=== PATIENT | female | born 1955 | race Caucasian/White ===

== ENCOUNTER 2022-03-19 09:55 | Day surgery (SDC) | payer BC ==
[2022-03-15 10:30] LABS: Absolute Lymphocytes (CBC) 1.5 K/uL (0.7-4.9); Hematocrit 33.2 % (36.0-45.0); Lymphocytes % 20.2 % (15.3-44.8); MCV 79.9 fL (80-100); MPV 6.6 fL (7.6-11.3); RBC Red Blood Cell Count 4.16 M/uL (3.86-4.86)
[2022-03-15 10:45] LABS: Potassium 3.8 mmol/L (3.5-5.1)
[2022-03-15 10:52] LABS: SARS-CoV-2 Antigen Rapid Res Negative (Negative)
--- NOTE | 2022-03-15 12:19 | EKG ---
Test Date: 2022-03-15 Test Time: 10:01:03 Vice President & General Manager [employer]: HUY MEASUREMENT RESULTS: Intervals: Rate: 68 MI: QRSD: 94 QT: 398 QTc: 423 [place]: P: MI: QRS: -34 T: 44 INTERPRETIVE STATEMENTS: Accelerated Junctional rhythm Left axis deviation Cannot rule out Anterior infarct, age undetermined Abnormal ECG No previous ECG available for comparison Electronically Signed On 03-15-22 12:19:06 CDT by Hugo Elena
[2022-03-19] MEDS ORDERED: CEFAZOLIN 2 GM IN 0.9% NACL 2 GM/100 ML BAG ONE (10:30)
[2022-03-19] MEDS: NA CHLORIDE 0.9% 1,000 ML ONE ×2 (10:40→11:18)
[2022-03-19] MEDS ORDERED: FENTANYL CITR 100 MCG/2 ML ONE (11:07)
[2022-03-19] MEDS ORDERED: propofoL 200 MG/20 ML VIAL IV ONE (11:07)
[2022-03-19] MEDS ORDERED: MIDAZOLAM HCL 2 MG/2 ML INJ ONE (11:07)
[2022-03-19] MEDS ORDERED: LIDOCAINE 2% MPF 5 ML VIAL ONE (11:11)
[2022-03-19] MEDS ORDERED: ONDANSETRON 4 MG/2 ML VIAL ONE (11:11)
[2022-03-19] MEDS ORDERED: BUPIVACAINE 0.25% PF 10 ML VIAL ONE (11:17)
[2022-03-19] MEDS ORDERED: METHYLENE BLUE 0.5% 10 ML AMP ONE (11:55)
[2022-03-19] MEDS ORDERED: SODIUM HYPOCHLORITE 0.25% 473 ML ONE (12:21)
[2022-03-19] MEDS ORDERED: NA CHLORIDE 0.9% 1,000 ML ONE (12:50)
--- NOTE | 2022-03-19 12:55 | P.OP ---
Preoperative diagnosis: Bilateral Buttock / Perianal Hidradenitis Postoperative diagnosis: Bilateral Buttock / Perianal Hidradenitis Primary procedure: Wide local excision of Bilateral Buttock / Perianal Hidradenitis Anesthesia: GETA + Local Estimated blood loss: <20cc Specimen: debridement tissue Findings: 5cm RIGHT buttock wound, 3cm x 2 cm buttock wound Complications: None Transferred to: Recovery Room Condition: Good
[2022-03-19] MEDS ORDERED: HYDROMORPHONE HCL 1 MG/ML INJ ONE (13:04)
[2022-03-19 15:22] VITALS: BP 133/85; TEMP 96.6; O2SAT 95
--- NOTE | 2022-03-20 01:46 | OP ---
Date of Procedure: 03/19/2022 Surgeon: Moncho Koch MD, Preoperative Diagnosis: Bilateral buttock/perianal hidradenitis. Postoperative Diagnosis: Bilateral buttock/perianal hidradenitis. Procedure Performed: Wide local excision of bilateral buttock/perianal hidradenitis. Anesthesia: General endotracheal plus local with 0.5% Marcaine with epinephrine as above. Estimated Blood Loss: 5 cc. Specimen: Debridement tissue. Findings: 5 cm right buttock wound and a 3 cm buttock wound, both areas were affected hidradenitis w ith sinus tracts. Complications: None. The patient was transferred recovery room in good condition. Procedure In Detail: After informed was obtained, the patient was brought to the operating room, pre pped and draped in the usual sterile fashion. After adequate anesthesia was achieved, the patient wa s placed in lithotomy position. I then inspected the area of hidradenitis in the bilateral buttock a reas. These had some draining clear fluid at this point. I then injected methylene blue into all af fected areas and noted tract in a radial type pattern from the perianal area on the right buttock mony roximately 3 cm from the perianal verge, I noted a sinus tract of hidradenitis skin. This was taken down using sharp dissection with a 15 blade down to subcutaneous tissue. Electrocautery was used to dissect all affected tissues and sent off for pathologic examination. The area was curetted. Hemost asis was achieved with electrocautery. The wound was then copiously irrigated and packed with steril e gauze soaked in Dakin solution and a sterile dressing placed over top. I then turned my attention to the left buttock area. Similarly, this area was injected with methylene blue and the sinus tract was inspected at this point. At this point, I performed a perianal exam putting an anoscope in the a nal vault and inspected. No obvious fistulous tracts were appreciated. No methylene blue was apprec iated in the anal vault and as such, no obvious fistulous tracts were appreciated. At this point, I then used a 15 blade down through subcutaneous tissues and dissected circumferentially around approxi mately 3 cm area of hidradenitis on the left buttock area with a 15 blade down through subcutaneous t issues, I then used electrocautery to remove all the infected blue tissues, sent this off for patholo gic examination as debridement tissue consistent with hidradenitis. The area was copiously irrigated . Hemostasis was achieved with electrocautery. The area was copiously irrigated one last time, suct ioned out, then completely dry. The area was then packed with 0.25% Dakin solution and a sterile manjit ssing was placed over top. The patient tolerated the procedure without evidence of complication, tra nsferred to the PACU in good condition. All counts were correct at the end of the case. KULWANT/BISI Voice ID: [id number] Report ID: [id number]
== END 2022-03-19 15:10 | disposition home or self-care (01) ==
LOC: OR 09:55
PROVIDERS: ATTEND Surgery
PROC: 0JB90ZZ Excision of Buttock Subcutaneous Tissue and Fascia, Open Approach (ICD-10-PCS; principal; 2022-03-19 11:15)
DX: L73.2 Hidradenitis suppurativa (principal); Z20.822 Contact with and (suspected) exposure to COVID-19
CPT/HCPCS: 11470; 93005; 85025; 80048; 36415; 82947 ×2; 88304; 87811; J2704; J2250; J3010; J1170; J0690; Q9968; J7030 ×2; J2405

== ENCOUNTER 2022-06-11 11:29 | Day surgery (SDC) | payer BC ==
[2022-06-10 13:26] LABS: Potassium 3.9 mmol/L (3.5-5.1)
[2022-06-11] MEDS ORDERED: NA CHLORIDE 0.9% 1,000 ML ONE (11:48)
[2022-06-11] MEDS ORDERED: CEFAZOLIN SODIUM 1 GM/VIAL ONE (11:48)
[2022-06-11] MEDS ORDERED: propofoL 200 MG/20 ML VIAL IV ONE (14:22)
[2022-06-11] MEDS ORDERED: MIDAZOLAM HCL 2 MG/2 ML INJ ONE (14:22)
[2022-06-11] MEDS ORDERED: ROCURONIUM 50 MG/5 ML VIAL IV ONE (14:22)
[2022-06-11] MEDS ORDERED: FENTANYL CITR 100 MCG/2 ML ONE ×2 (14:22→15:38)
[2022-06-11] MEDS ORDERED: LIDOCAINE 2% MPF 5 ML VIAL ONE (14:24)
[2022-06-11] MEDS ORDERED: SODIUM HYPOCHLORITE 0.25% 473 ML ONE (14:25)
[2022-06-11] MEDS ORDERED: EPHEDRINE SULF 50 MG/ML VIAL ONE (15:01)
[2022-06-11] MEDS ORDERED: METHYLENE BLUE 0.5% 10 ML AMP ONE (15:10)
[2022-06-11] MEDS ORDERED: SUCCINYLCHOLINE 20 MG/ML (10 ML) IV ONE (15:13)
--- NOTE | 2022-06-11 16:25 | P.OP ---
Preoperative diagnosis: LEFT Axillary and LEFT inframmary, RIGHT Buttock Hidradenitis Postoperative diagnosis: LEFT Axillary and LEFT inframmary, RIGHT Buttock Hidradenitis Primary procedure: Wide excision of LEFT Axillary and LEFT inframmary, Hidradenitis Secondary procedure: RIGHT Buttock Hidradenitis Anesthesia: GETA + Local Estimated blood loss: <75cc Specimen: Skin and Subcutaneous tissue - left axillay, left chest, right buttock Findings: Hidradenitis suppuritiva of LEFT axilly, LEFT chest wall, RIGHT buttock Complications: None Transferred to: Recovery Room Condition: Good
[2022-06-11] MEDS: HYDROMORPHONE HCL 1 MG/ML INJ ONE ×4 (16:50→17:14)
[2022-06-11 17:50] VITALS: TEMP 96.6; O2SAT 96
[2022-06-11] MEDS ORDERED: ONDANSETRON 4 MG/2 ML VIAL ONE (18:27)
[2022-06-11 19:18] VITALS: BP 154/72
--- NOTE | 2022-06-12 05:35 | OP ---
Date of Procedure: 06/11/2022 Surgeon: Moncho Koch MD, Preoperative Diagnoses: Left axillary and left inframammary skin hidradenitis and right buttock hidr adenitis suppurativa. Postoperative Diagnoses: Left axillary and left inframammary skin hidradenitis and right buttock hid radenitis suppurativa. Procedures Performed: 1.Wide local excision of left axillary hidradenitis suppurativa. 2.Wide local excision of left inframammary hidradenitis suppurativa. 3.Wide local excision of right buttock hidradenitis suppurativa and tract. Anesthesia: General endotracheal plus local with 0.25% Marcaine without epinephrine. Estimated Blood Loss: 75 cc. Specimens: Skin and subcutaneous tissue from the left axilla, left chest wall at the inframammary cr ease and right buttock. Findings: Hidradenitis suppurativa of the left axilla with abscess. Left chest wall/inframammary hi dradenitis suppurativa with draining sinus and abscess. Right buttock hidradenitis suppurativa also with abscess. Complications: None. Disposition: The patient transferred to recovery room in good condition. Procedure In Detail: After informed consent was obtained, patient was brought to the operating room, prepped and draped in the usual sterile fashion. After adequate anesthesia was achieved, and the ar ea of right buttock was injected, where a sinus tract was draining with methylene blue. The blue dye was noted to be emanating through a particular tract, which was evident at the skin level. As such, an elliptical incision for approximately 5 cm down by 4 cm down to subcutaneous fat, approximately 2 cm from the perianal skin was incised on the right buttock. I then dissected circumferentially arou nd using electrocautery to remove all infected blue discolored tissues. Abscess was encountered. Th is was cultured with both aerobic and anaerobic speciation and sent off for pathologic examination wi th specimen. After the specimen was ligated, the area was copiously irrigated. Hemostasis was easil y achieved with electrocautery. No additional hemostatic maneuvers were required. The end of the wo und was then packed with Kerlix soaked in 0.25% Dakin solution and a dry dressing was applied over th e top. The patient was then prepped and draped in the usual sterile fashion for the left axillary/le ft inframammary incision and the procedure. After the appropriate anesthesia was maintained througho ut the procedure, I injected the area of the left inframammary crease through an area of draining sin us with abscess. A circumferential ellipse of skin for approximately 3.5 cm by 2 cm down of subcutan eous fat was removed using a 15 blade down circumferentially around electrocautery to allow for remov al. The entire specimen was sent off for pathologic examination. Hemostasis was then achieved with electrocautery. The wound was irrigated and closed with an interrupted 3-0 nylon suture and the ster ile dressing was placed over top. Attention was then turned to the left axilla over an area of appro ximately 15 cm x 8 cm elliptical area of severe hidradenitis suppurativa with draining abscess materi al was inspected. I made an elliptical incision around the above-described parameters down to the fletcher bcutaneous tissues using a 15 blade. Electrocautery was used to dissect down to the subcutaneous tis sues where an infected hidradenitis suppurativa tissue was encountered as well as multiple abscesses through this area, some of which communicated, some of which were independent, and multiple areas of this abnormal skin. All abscess cavities were removed, staying in the axillary space. After all the abnormal tissue was removed, it was sent off for pathologic examination. The area was copiously irr igated. Hemostasis was achieved with electrocautery. The skin could not be brought back together du e to a significant tissue loss in this area. As such, the sterile dressing was then soaked in 0.25% Dakin solution and packed into the axillary subcutaneous tissues and a sterile dressing placed over t op. The patient tolerated the procedure without evidence of any complication and transferred back in good condition. All counts were correct at the end of the case. KULWANT/BISI Voice ID: [id number] Report ID: [id number]
== END 2022-06-11 19:12 | disposition home or self-care (01) ==
LOC: OR 11:29
PROVIDERS: ATTEND Surgery
PROC: 0JB60ZZ Excision of Chest Subcutaneous Tissue and Fascia, Open Approach (ICD-10-PCS; 2022-06-11)
PROC: 0JBF0ZZ Excision of Left Upper Arm Subcutaneous Tissue and Fascia, Open Approach (ICD-10-PCS; principal; 2022-06-11 14:00)
PROC: 0JB90ZZ Excision of Buttock Subcutaneous Tissue and Fascia, Open Approach (ICD-10-PCS; 2022-06-11 14:00)
DX: L73.2 Hidradenitis suppurativa (principal); I10 Essential (primary) hypertension; E11.9 Type 2 diabetes mellitus without complications; I48.91 Unspecified atrial fibrillation
CPT/HCPCS: 87070; 80048; 36415; 87205; 82947 ×2; 88304; 87075; 87077 ×2; 87186 ×2; 11450; 11470; 11403; J2704; J0330; J2001; J3010 ×2; J1170 ×2; Q9968; J7030; J2405; J0690; 88305; J2250

== ENCOUNTER 2023-03-18 09:05 | Day surgery (SDC) | payer BC ==
[2023-03-18 10:09] LABS: Absolute Lymphocytes (CBC) 1.7 K/uL (0.7-4.9); Hematocrit 33.7 % (36.0-45.0); Lymphocytes % 27.2 % (15.3-44.8); MCV 83.6 fL (80-100); MPV 6.7 fL (7.6-11.3); Platelets 217 thou/uL (152-406); RBC Red Blood Cell Count 4.02 M/uL (3.86-4.86)
[2023-03-18] MEDS ORDERED: NA CHLORIDE 0.9% 1,000 ML ONE (10:10)
[2023-03-18 10:26] LABS: Potassium 3.5 mEq/L (3.5-5.1)
[2023-03-18] MEDS ORDERED: MIDAZOLAM HCL 2 MG/2 ML INJ ONE (13:13)
[2023-03-18] MEDS ORDERED: propofoL 200 MG/20 ML VIAL IV ONE ×3 (13:13→14:31)
[2023-03-18] MEDS ORDERED: KETAMINE HCL IN 0.9 % NACL 50 MG/5 ML SYRINGE IV ONE (13:15)
[2023-03-18] MEDS ORDERED: ACETAMINOPHEN 500 MG TAB ONE (15:03)
[2023-03-18 15:18] VITALS: TEMP 96.8
[2023-03-18 15:30] VITALS: BP 141/73; O2SAT 100
--- NOTE | 2023-03-21 13:12 | EKG ---
Test Date: 2023-03-18 Test Time: 10:26:22 Management Technician: MARGARITA MEASUREMENT RESULTS: Intervals: Rate: 62 AL: QRSD: 98 QT: 418 QTc: 424 [place]: P: AL: QRS: 15 T: 44 INTERPRETIVE STATEMENTS: Junctional rhythm Abnormal ECG Compared to ECG 03/18/2023 10:25:07 Fusion complex(es) no longer present Electronically Signed On 03-21-23 13:08:33 CDT by Hugo Elena
== END 2023-03-18 15:27 | disposition home or self-care (01) ==
LOC: OR 09:05
PROVIDERS: ATTEND Surgery
PROC: 0DB98ZX Excision of Duodenum, Via Natural or Artificial Opening Endoscopic, Diagnostic (ICD-10-PCS; 2023-03-18)
PROC: 0DB78ZX Excision of Stomach, Pylorus, Via Natural or Artificial Opening Endoscopic, Diagnostic (ICD-10-PCS; 2023-03-18)
PROC: 0DB68ZX Excision of Stomach, Via Natural or Artificial Opening Endoscopic, Diagnostic (ICD-10-PCS; 2023-03-18)
PROC: 0DB58ZX Excision of Esophagus, Via Natural or Artificial Opening Endoscopic, Diagnostic (ICD-10-PCS; 2023-03-18)
PROC: 0DBK8ZX Excision of Ascending Colon, Via Natural or Artificial Opening Endoscopic, Diagnostic (ICD-10-PCS; principal; 2023-03-18 11:15)
PROC: 0DBL8ZX Excision of Transverse Colon, Via Natural or Artificial Opening Endoscopic, Diagnostic (ICD-10-PCS; 2023-03-18 11:15)
DX: Z12.11 Encounter for screening for malignant neoplasm of colon (principal); K29.30 Chronic superficial gastritis without bleeding; K31.7 Polyp of stomach and duodenum; K29.80 Duodenitis without bleeding; K64.8 Other hemorrhoids; D12.2 Benign neoplasm of ascending colon; D12.3 Benign neoplasm of transverse colon; R13.10 Dysphagia, unspecified; K21.9 Gastro-esophageal reflux disease without esophagitis
CPT/HCPCS: 45385; 43239; 93005 ×2; 85025; 80048; 36415; 88312; 88305; J2704 ×3; J2250; J7030

== ENCOUNTER → 2023-11-18 | Day surgery (SDC) | payer BC ==
[~2023-11-18] MED LIST: LIDOCAINE 1% MPF 5 ML VIAL ONE; propofoL 200 MG/20 ML VIAL IV ONE
[2023-11-18] MEDS: NA CHLORIDE 0.9% 1,000 ML ONE (08:00)
[2023-11-18 11:11] VITALS: BP 138/57; TEMP 96.8; O2SAT 99
== END ==
LOC: OR 07:24
PROVIDERS: ATTEND Surgery
PROC: 0DB98ZX Excision of Duodenum, Via Natural or Artificial Opening Endoscopic, Diagnostic (ICD-10-PCS; 2023-11-18)
PROC: 0DB78ZX Excision of Stomach, Pylorus, Via Natural or Artificial Opening Endoscopic, Diagnostic (ICD-10-PCS; 2023-11-18)
PROC: 0DB18ZX Excision of Upper Esophagus, Via Natural or Artificial Opening Endoscopic, Diagnostic (ICD-10-PCS; 2023-11-18)
PROC: 0DB38ZX Excision of Lower Esophagus, Via Natural or Artificial Opening Endoscopic, Diagnostic (ICD-10-PCS; 2023-11-18)
PROC: 0DB48ZX Excision of Esophagogastric Junction, Via Natural or Artificial Opening Endoscopic, Diagnostic (ICD-10-PCS; 2023-11-18)
PROC: 0DBM8ZX Excision of Descending Colon, Via Natural or Artificial Opening Endoscopic, Diagnostic (ICD-10-PCS; principal; 2023-11-18 08:30)
PROC: 0DBN8ZX Excision of Sigmoid Colon, Via Natural or Artificial Opening Endoscopic, Diagnostic (ICD-10-PCS; 2023-11-18 08:30)
DX: Z12.11 Encounter for screening for malignant neoplasm of colon (principal); Z86.010 Personal history of colon polyps; R13.10 Dysphagia, unspecified; K64.8 Other hemorrhoids; K29.50 Unspecified chronic gastritis without bleeding; K31.7 Polyp of stomach and duodenum; K21.00 Gastro-esophageal reflux disease with esophagitis, without bleeding; D12.5 Benign neoplasm of sigmoid colon; K21.9 Gastro-esophageal reflux disease without esophagitis
CPT/HCPCS: 88312 ×2; 82947; 88305; 45380; 43239; J2704; J2001; J7030

== ENCOUNTER 2025-05-03 09:24 | Day surgery (SDC) | payer BC ==
[2025-05-01 15:10] LABS: Absolute Lymphocytes (CBC) 1.7 K/uL (0.7-4.9); Hematocrit 38.6 % (36.0-45.0); Hemoglobin 13.4 g/dL (12.0-15.0); MCH 29.6 pg (27.0-35.0); MCHC 34.7 g/dL (32.0-36.0); MCV 85.3 fL (80-100); MPV 6.9 fL (7.6-11.3); Nucleated RBC Absolute Count 0.0 (0-0); Nucleated Red Blood Cells % 0.1 % (0-0); RBC Red Blood Cell Count 4.53 M/uL (3.86-4.86); White Blood Count 8.60 thou/uL (4.3-10.9)
[2025-05-01 15:19] LABS: PT Prothrombin Time 13.0 SECONDS (10-13.0); PTT, Activated Partial Thromb 32.2 SECONDS (27.2-37.4); Protime INR 1.16
[2025-05-01 15:26] LABS: Anion Gap 10.7 mEq/L (5.0-15.0); BUN Blood Urea Nitrogen 22.0 mg/dL (7-18); Glucose Level 216.0 mg/dL (74-106); Potassium 3.7 mEq/L (3.5-5.1)
[2025-05-03] MEDS: NA CHLORIDE 0.9% 1,000 ML ONE (09:50)
[2025-05-03] MEDS ORDERED: METHYLENE BLUE 1% 10 ML VIAL ONE (10:52)
[2025-05-03] MEDS ORDERED: LIDOCAINE 2% MPF 5 ML VIAL ONE (10:57)
[2025-05-03] MEDS ORDERED: FENTANYL CITR 100 MCG/2 ML ONE ×2 (10:57→11:45)
[2025-05-03] MEDS ORDERED: MIDAZOLAM HCL 2 MG/2 ML INJ ONE (10:57)
[2025-05-03] MEDS: CEFAZOLIN SODIUM 2 GM/VIAL ONE (11:12)
[2025-05-03] MEDS ORDERED: ONDANSETRON 4 MG/2 ML VIAL ONE (11:32)
[2025-05-03] MEDS ORDERED: EPHEDRINE SULF 50 MG/ML VIAL ONE (11:36)
[2025-05-03] MEDS: LIDOCAINE HCL/EPINEPHRINE 20 ML MDV ONE (11:46)
--- NOTE | 2025-05-03 12:31 | P.OP ---
Preoperative diagnosis: RIGHT Axillary Severe Hidradenitis with abscess Postoperative diagnosis: RIGHT Axillary Severe Hidradenitis with abscess Primary procedure: Wide Excision of RIGHT Axillary Severe Hidradenitis with abscess Anesthesia: GETA + Local Estimated blood loss: <50cc Specimen: Cultures + Debridement Tissue Findings: ~ 6cm x 5cm x 3cm tissue Complications: None Transferred to: Recovery Room Condition: Good
[2025-05-03] MEDS: HYDROMORPHONE HCL 1 MG/ML INJ ONE (13:07)
[2025-05-03] MEDS: FENTANYL CITR 100 MCG/2 ML ONE (13:20)
[2025-05-03] MEDS ORDERED: HYDROCODONE/APAP 5/325 MG TAB ONE (15:02)
--- NOTE | 2025-05-03 15:19 | OP ---
Date of Procedure: 05/03/2025 Surgeon: Aiyana Koch MD, Preoperative Diagnosis: Right axillary severe hidradenitis suppurativa with abscess. Postoperative Diagnosis: Right axillary severe hidradenitis suppurativa with abscess. Procedure Performed: Wide local excision of severe right axillary hidradenitis suppurativa with absc ess. Anesthesia: General endotracheal plus local with 1% lidocaine. Estimated Blood Loss: Less than 50 cc. Specimens: Culture sent for both aerobic and anaerobic speciation, and debridement tissue. Findings: There was an ellipse of tissue affected approximately 6 cm x 5 cm down to 3 cm depth throu gh the adipose tissue abutting the muscular plane. Complications: None immediate. Disposition: The patient transferred to recovery room in good condition. Procedure In Detail: After informed consent was obtained, the patient was prepped and draped in the usual sterile fashion. After adequate anesthesia was achieved, I made an elliptical incision around the right axillary tissue, which is obviously heavily scarred draining sinuses consistent with absces ses and her known history of hidradenitis suppurativa, was evident in this location. After the ellip tical incision was made using a 15-blade down to the subcutaneous tissues, I used electrocautery and dissected down to remove all these affected areas including the abnormal tissue pegs that were emanat ing from this, which significantly deeper and abutted the muscular plane. The tissue was significantly abnormal and as such was removed in its entirety. Small bleeding vessels were encounte red several times and were suture ligated with a 3-0 Vicryl suture in a stick-tie fashion. Good hemo stasis was achieved at this point. The tissue was sent off for pathologic examination after being sw abbed for culture both aerobic and anaerobic speciation at this point. The area was copiously irriga aiyana. Hemostasis was achieved with electrocautery. Circumferentially, around the area was irrigated once again and inspected for hemostasis, which was achieved at this point. I then partially reapprox imated the edges using 3-0 nylon suture and left the central portion open and packed with a Kerlix, d amp with Vashe, and dry dressing placed over top. The patient tolerated the procedure without incide nt or complication, transferred to PACU in good condition. All counts were correct at the end of the case. TK/MODL Voice ID: [id number] Report ID: [id number]
[2025-05-03] MEDS: HYDROCODONE/APAP 5/325 MG TAB PO ONE (15:20)
[2025-05-03 15:55] VITALS: BP 157/2; TEMP 97; O2SAT 97
== END 2025-05-03 15:40 | disposition home or self-care (01) ==
LOC: OR 09:24
PROVIDERS: ATTEND Surgery
PROC: 0JBD0ZZ Excision of Right Upper Arm Subcutaneous Tissue and Fascia, Open Approach (ICD-10-PCS; principal; 2025-05-03 11:45)
DX: L73.2 Hidradenitis suppurativa (principal); L02.411 Cutaneous abscess of right axilla; I10 Essential (primary) hypertension; E11.9 Type 2 diabetes mellitus without complications; F41.9 Anxiety disorder, unspecified; I48.11 Longstanding persistent atrial fibrillation
CPT/HCPCS: 87070; 85025; 80048; 36415; 87205; 85610; 82947 ×2; 88304; 85730; 87075; 87077 ×2; 87186 ×2; 11450; J2704; J1100; J2003; J2250; J3010 ×3; J1171; J2405; J7030